=== PATIENT | male | born 1985 | race Two or more races ===

== ENCOUNTER 2021-10-27 01:30 | Emergency (ER) | payer MEDICAID ==
[~2021-10-27] VITALS: Ht 170.2 cm; Wt 78.5 kg
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
[2021-10-27] MEDS ORDERED: AMOX-430 PO (04:07)
[2021-10-27] MEDS ORDERED: AMOX/CLAVULANATE 875 MG TABLET ONE (04:19)
--- NOTE | 2021-10-27 04:25 | NUR ---
Patient discharged to home in stable condition. Written and verbal after care instructions given. Patient verbalizes understanding of instruction.
[2021-10-27] MEDS ORDERED: AMOX/CLAVULANATE 875 MG TABLET PO ONE (04:30)
[2021-10-27 04:36] VITALS: BP 122/75
== END 2021-10-27 04:26 | disposition home or self-care (01) ==
LOC: ER 01:41
DX: S02.2XXA Fracture of nasal bones, initial encounter for closed fracture (principal); V49.49XA Driver injured in collision with other motor vehicles in traffic accident, initial encounter; Y93.89 Activity, other specified; Y92.413 State road as the place of occurrence of the external cause; Y99.8 Other external cause status
CPT/HCPCS: 70486-TC

== ENCOUNTER 2024-04-09 17:40 | Emergency (ER) | payer MEDICAID ==
[~2024-04-09] VITALS: Ht 172.7 cm; Wt 86.6 kg
[~2024-04-09 17:40] MED LIST: AMOX-430 PO
[2024-04-09 18:38] LABS: BASOPHILS # (AUTO) 0.1 K/uL (0.0-0.2); BASOPHILS % (AUTO) 0.8 % (0.0-2.0); EOSINOPHILS # (AUTO) 0.2 K/uL (0.0-0.7); HEMATOCRIT 36 % (39-51); HEMOGLOBIN 12.1 g/dL (13.5-17.5); LYMPHOCYTES # (AUTO) 2.5 K/uL (0.8-4.8); LYMPHOCYTES % (AUTO) 37.7 % (20.0-44.0); MEAN CORPUSCULAR HEMOGLOBIN 28 PG (26.0-33.0); MEAN CORPUSCULAR HGB CONC 33 g/dl (31.0-36.0); MEAN CORPUSCULAR VOLUME 83 fL (80-96); MONOCYTES # (AUTO) 0.6 K/uL (0.1-1.30); NEUTROPHILS # (AUTO) 3.3 K/uL (1.8-8.9); NEUTROPHILS % (AUTO) 49.5 % (43.0-81.0); PLATELET COUNT (AUTO) 287 K/uL (150-450); RED BLOOD CELL COUNT(AUTO) 4.38 MIL/uL (4.5-6.0); RED CELL DISTRIBUTION WIDTH 13.1 % (11.5-15.0); WHITE BLOOD COUNT (AUTO) 6.7 K/uL (4.3-11.0)
[2024-04-09 18:46] LABS: CARBON DIOXIDE 32 mmol/L (21-32); CHLORIDE 102 mmol/L (98-107); CREATININE 0.8 mg/dL (0.6-1.3); GLUCOSE 94 mg/dL (74-106); SODIUM SERUM 140 mmol/L (136-145); UREA NITROGEN, BLOOD 13 mg/dL (7-18)
[2024-04-09 18:51] LABS: D-DIMER 1.06 mg/L(FEU (0.17-0.50); INR 0.94 (0.91-1.10); PARTIAL THROMBOPLASTIN TIME 28.6 SEC (24.3-34.3)
[2024-04-09 18:59] LABS: NT-PRO BNP 29 pg/mL (0-125)
[2024-04-09] MEDS ORDERED: IV NS 0.9% 250 ML IV ONE (19:08)
[2024-04-09] MEDS ORDERED: IOHEXOL-350 100 ML VIAL IV ONE (19:08)
[2024-04-09] MEDS ORDERED: FUROSEMIDE 20 MG/2 ML VIAL ONE (19:25)
[2024-04-09] MEDS: FUROSEMIDE 20 MG/2 ML VIAL IV ONE (19:32)
[2024-04-09] MEDS ORDERED: FURO-145 PO (20:34)
[2024-04-09 20:58] VITALS: BP 125/79; TEMP 97.8; O2SAT 100
== END 2024-04-09 20:59 | disposition home or self-care (01) ==
LOC: ER 17:49
DX: R60.0 Localized edema (principal); M79.661 Pain in right lower leg; M79.662 Pain in left lower leg; J45.909 Unspecified asthma, uncomplicated
CPT/HCPCS: 99285; 93970; 96374; 71275; 71045; 93005; 85025; 80048; 85378; 36415; 84484; 85730; 83880; J1940; J7050; Q9967